=== PATIENT | male | born 1950 ===

== ENCOUNTER 2018-05-17 09:40 | Outpatient (CLI) | payer MEDICARE, BC, OTHER ==
[~2018-05-17 09:40] MED LIST: ISOVUE-370 76%-LOCM 1 ML ONE
== END 2018-05-17 09:41 | disposition home or self-care (01) ==
LOC: BICCT 09:40
PROVIDERS: ATTEND Urology
DX: C64.1 Malignant neoplasm of right kidney, except renal pelvis (principal); N28.9 Disorder of kidney and ureter, unspecified
CPT/HCPCS: 71046; 74178